=== PATIENT | female | born 1955 | race African-American/Black ===

== ENCOUNTER 2021-08-11 07:53 | Emergency (ER) | payer OTHER ==
[~2021-08-11] VITALS: Ht 160 cm; Wt 73.9 kg
[2021-08-11] MEDS ORDERED: ZETIA10 MG (08:04)
[2021-08-11] MEDS ORDERED: LIPITOR40 M1 PO (08:04)
[2021-08-11] MEDS ORDERED: METFORMIN HCL500 M3 (08:04)
[2021-08-11] MEDS ORDERED: NASAL MIST126 ML (08:04)
[2021-08-11] MEDS ORDERED: TENORMIN25 MG (08:04)
[2021-08-11] MEDS ORDERED: SYNTHROID75 MCG PO (08:05)
[2021-08-11] MEDS ORDERED: AVAPRO300 MG PO (08:05)
== END 2021-08-11 09:21 | disposition home or self-care (01) ==
LOC: ER 07:53
DX: F41.9 Anxiety disorder, unspecified (principal); I10 Essential (primary) hypertension; E11.9 Type 2 diabetes mellitus without complications